=== PATIENT | male | born 1940 | race Caucasian/White ===

== ENCOUNTER 2017-12-27 01:37 | Inpatient (IN) | payer MEDICARE ==
[~2017-12-27] VITALS: Ht 182.9 cm; Wt 85.3 kg
[2017-12-27] MEDS ORDERED: ZOLP6.252 PO (02:25)
[2017-12-27] MEDS ORDERED: ALPR0.255 PO (02:25)
[2017-12-27] MEDS ORDERED: ATEN25TA PO (02:26)
[2017-12-27] MEDS ORDERED: MAG HYDROX/AL HYDROX/SIMETH 30 ML LIQUID UDC PO PRN (02:45)
[2017-12-27] MEDS ORDERED: MAGNESIUM HYDROXIDE 30 ML LIQUID UDC PO PRN (02:45)
--- NOTE | 2017-12-27 03:00 | NUR ---
AT APPROX 0130, ADMITTED 77 YEAR OLD MALE FROM [facility] VIA AMBULANCE TO [facility]HU ON A 5150FOR DTS.PER HOLD, PATIENT OD ON 4 PILLS ON AMBIEN 6.2MG AND 12 PILLS OF XANAX 0.25MG. AT TIME OF ADMISSION, PATIENT WAS NOTED A/O 3. HE STATED THAT HE IS UNABLE TO WALK. UPON INTERVIEW, HE STATED, HE STATED AMADA HE FELL AT HOME FEW DAYS AGO AND SINCE THEN HE HAS BEEN HAVING SOME DIFFICULTY WALKING. PATIENT THEN D/T THE PAIN AND THINKING THAT HE IS A BURDEN TO HER SISTER, HE ATTEMPTED TO KILL HIMSELF BY OD ON HIS PILLS. ACCORDING TO HIS HOLD, HIS NEIGHBOR WHEN TO CHECK ON HIM YESTERDAY AND FOUND HIM SLEEPING AND HE CALLED 911. PATIENT WAS TAKEN TO [facility] WHERE HE WAS PUT ON HOLD FOR DTS AND WAS MEDICALLY CLEARED FOR ADMISSION TO MHU IN [facility]. UPON ASSESSMENT, REDNESS NOTED ON BUTTOCKS, AND A RED SPOT NOTED IN HIS RIGHT HIP LATERAL ASPECT. UPON INTERVIEW PATIENT CONTINUE HAVING SI. HE STATED, "I DON'T WANT TO LIVE ANYMORE, I AM SORRY I WAS NOT ABLE TO THEN". PATIENT WAS REASSURED AND REDIRECTED AND WAS ABLE TO CFS AT THIS TIME. PATIENT C/O UNABLE TO URINATE, A BLADDER SCANNER WAS DONE WITH 875 URINE RETENTION IN HIS BLADDER. JACQUE PETIT WAS CALLED AT 0220 AND AGAIN AT 0236. HE CALLED BACK AT APPROX 0250 WITH A NEW ORDER TO DO IN-AND-OUT XIE CATH ONE TIME. ORDER NOTED A CARRIED OUT. PATIENT IS UNDER THE CARE OF DR SUGGS. WILL CONTINUE TO MONITOR.
--- NOTE | 2017-12-27 03:30 | NUR ---
PATIENT NOTED CALM, COOPERATIVE AND IN NO ACUTE DISTRESS. 1100CC OF URINE OUT WAS NOTED. PATIENT C/O MODERATE PAIN IN HIS RIGHT HIP UPON CHANGING POSITIONS. HE STATED THAT HE IS HAVING PAIN IN HIS RIGHT HIP SINCE HE FELL FEW DAYS AGO. DR Mariela CARR WAS NOTIFY AND NEW ORDER OBTAINED FOR X RAY RIGHT HIP. AWAITING FOR X RAY TO BE TAKEN. WILL CONTINUE TO MONITOR.
--- NOTE | 2017-12-27 05:00 | NUR ---
X RAY OF RIGHT HIP WAS TAKEN. PATIENT NOTED CALM, COOPERATIVE, IN NO DISTRESS. WILL CONTINUE TO MONITOR.
[2017-12-27 05:28] VITALS: BP 138/76
--- NOTE | 2017-12-27 06:09 | NUR ---
AWAITING FOR RESULTS OF RIGHT HIP X RAY. PATIENT SLEEPING COMFORTABLE IN HIS BED. WILL CONTINUE TO MONITOR.
--- NOTE | 2017-12-27 06:27 | NUR ---
PATIENT NOTED SLEEPING COMFORTABLE IN HIS ROOM IN BE. 1300CC IS NOW NOTED IN HIS XIE CATH WITH MILD HEMATURIA VISIBLE. DR. CARR WAS NOTIFY AND NEW ORDER GIVEN TO LEAVE THE XIE CATH IN PLACE AND SEND UA FOR C/S AND URINALYSIS. ORDER NOTED AND CARRIED OUT. WILL CONTINUE TO MONITOR. Addendum: 12/27/17 at 0635 by FARRAH KITCHEN RN PER DR. CARR, NEW ORDER TO DO A BLADDER FLUSH LATER ON THIS MORNING. WILL ENDORSE TO INCOMING SHIFT.
--- NOTE | 2017-12-27 06:53 | NUR ---
SISTER DONALD DUNNE WAS NOTIFY OF PAT[facility] AD[facility] AT PHONE #[phone].
--- NOTE | 2017-12-27 07:30 | NUR ---
XIE CATH WAS EMPTIED WITH APPROX 1100CC OF URINE OUTPUT. PATIENT RESTING COMFORTABLE IN HIS ROOM IN BED. SITTER AT BED SIDE. NO C/O PAIN AT THIS TIME. WILL CONTINUE TO MONITOR.
[2017-12-27 07:44] LABS: *BILIRUBIN,URIN NEGATIVE (NEGATIVE); *BLOOD, URINE 3+ (NEGATIVE); *CLARITY,URINE HAZY (CLEAR); *COLOR,URINE YELLOW (YELLOW); *KETONES,URINE NEGATIVE (NEGATIVE); *PROTEIN,URINE NEGATIVE (NEGATIVE); *UROBILINOGEN,URINE 0.2 E.U./dl (NORMAL); LEUKOCYTE ESTERASE ,URINE NEGATIVE (NEGATIVE); NITRITE, URINE NEGATIVE (NEGATIVE); PH,URINE 5.5 (5.0-8.0); UGLUCOSE NEGATIVE (NEGATIVE)
[2017-12-27 07:56] LABS: BACTERIA,URINE NONE SEEN /HPF (NONE SEEN); RBC,URINE 80-100 /HPF (0-3); SQUAMOUS EPITHELIAL CELL,UR FEW /HPF (NONE SEEN); WBC,URINE 0-3 /HPF (0-3)
[2017-12-27 08:00] VITALS: BP 140/64
[2017-12-27] MEDS: ATENOLOL 25 MG TABLET PO SCH (08:52)
[2017-12-27] MEDS: Z GUARD REMEDY PASTE 57 GM TUBE TOP SCH ×2 (08:52→20:25)
--- NOTE | 2017-12-27 12:00 | NUR ---
Gps/Testing Machine Operator- Coffey catheter remains secured to his left thigh, urine draining dark tea colored urine, adequate fluid intake , no clots noted at this time. Continue to monitor output
--- NOTE | 2017-12-27 12:44 | NUR ---
Firearms Report: Clerk Specialist completed and submitted [employer]arms Report on 12/27/17 for 5150 DTS certification.
[2017-12-27] MEDS: ESCITALOPRAM OXALATE 10 MG TABLET PO SCH (13:18)
--- NOTE | 2017-12-27 14:27 | NUR ---
Gps/Electrical Plumbing Supervisor- Saline lock to left forearm , insyte # 22 inserted ,tolerated well , Patient was well informed. for NS IV bolus 1 liter as per Shlomo Bah NP.Patient was well informed.
[2017-12-27] MEDS ORDERED: IV NS 1000 ML 1,000 ML IV ONE (14:30)
[2017-12-27 16:24] VITALS: BP 112/53
--- NOTE | 2017-12-27 16:29 | NUR ---
Initial Discharge Instructions: Patient currently resides at home alone [[address] [place] [address]; [phone]]. Per pt he would like to return there upon discharge. Patient reports he would be interested in Home Health when he is discharged as well. MARKEL will speak with pt's sister, Carole ([phone]) to gather further information. MARKEL will continue to collaborate with pt, family, and MD regarding most appropriate discharge plans for this patient. MARKEL will form a safe and proper discharge plan.
--- NOTE | 2017-12-27 18:00 | NUR ---
Gps/Massotherapist- Remains with IVF of NS at 100 ml/hr , infusing well to his left forearm, via IV pump, no redness noted to the site .
--- NOTE | 2017-12-27 19:45 | NUR ---
RECEIVED PATIENT IN HIS ROOM. HE IS NOTED ASLEEP BUT EASILY AROUSABLE. HE IS A/O X 3. HE CONTINUE ON 1:1 SUPERVISION FOR SI. CONTINUE ON IV FLUIDS NS 100ML/HOUR. HE ALSO CONTINUE WITH A XIE CATH, D/T URINARY RETENTION; TOLERATING WELL. PT. DENIES PAIN OR DISCOMFORT AT THIS TIME. V/S STABLE. HE IS NOTED WITH SAD FACIAL EXPRESSION, LOW MOOD, BLUNTED AFFECT, REMAINS IN HIS ROOM MOST OF THE TIME. HE IS ABLE TO CFS. HE IS COMPLIANT WITH MEDICATION REGIMENT AT THIS TIME. WILL CONTINUE TO MONITOR CLOSELY.
[2017-12-27] MEDS: TAMSULOSIN HCL 0.4 MG CAP.SR.24H PO SCH (20:25)
[2017-12-27 20:33] VITALS: BP 132/60
[2017-12-27] MEDS: ZOLPIDEM 5 MG TABLET PO PRN (22:38)
[2017-12-28] MEDS: ACETAMINOPHEN 325 MG TABLET PO PRN (00:51)
--- NOTE | 2017-12-28 01:00 | NUR ---
PATIENT C/O GENERALIZED MILD TO MODERATE PAIN. TYLENOL 650 MG PO PRN WAS GIVEN. WILL CONTINUE TO MONITOR.
[2017-12-28 07:30] VITALS: BP 133/63
[2017-12-28 08:16] LABS: CARBON DIOXIDE 24 mmol/L (21-32); CHLORIDE 109 mmol/L (98-107); CREATININE 1.5 mg/dL (0.6-1.3); GLUCOSE 96 mg/dL (74-106); POTASSIUM 3.9 mmol/L (3.5-5.1); UREA NITROGEN, BLOOD 23 mg/dL (7-18)
[2017-12-28] MEDS: ATENOLOL 25 MG TABLET PO SCH (08:34)
[2017-12-28] MEDS: ESCITALOPRAM OXALATE 10 MG TABLET PO SCH (08:34)
[2017-12-28] MEDS: Z GUARD REMEDY PASTE 57 GM TUBE TOP SCH ×2 (08:34→21:03)
[2017-12-28] MEDS: LORAZEPAM 0.5 MG TABLET PO PRN (12:27)
--- NOTE | 2017-12-28 12:30 | NUR ---
Gps/Flight Test Shop Mechanic- Verbalized feelings of being anxious, and afraid, when asked why he is afraid , claimed" my sister is coming to see me this afternoon, i always have that feelings when i am worried and scared, my legs and back does not work, gets weak".Reassured, claimed he also have difficulty eating when he gets anxious .Verbalized wanting to kill himself when he gets this way, encouraged to continue to verbalized feelings ,monitored closely for safety.Sitter well informed.
[2017-12-28 15:16] VITALS: BP 132/60
[2017-12-28] MEDS: TAMSULOSIN HCL 0.4 MG CAP.SR.24H PO SCH (21:02)
[2017-12-28 21:24] VITALS: BP 127/63
[2017-12-28] MEDS: ZOLPIDEM 5 MG TABLET PO PRN (23:41)
[2017-12-29] MEDS: ACETAMINOPHEN 325 MG TABLET PO PRN (06:09)
--- NOTE | 2017-12-29 06:56 | NUR ---
PATIENT SLEPT FOR MOST PART OF THE NIGHT, CONT 1;1 SITTER FOR SAFETY, GIVEN TYLENOL 650MG PO FOR COMPLAIN OF BACK PAIN AND R HIP PAIN, XIE CATH PATENT DRAINING WITH TEA TO YELLOW COLOR URINE IN MODERATE AMOUNT. KEPT CLEAN AND DRY. CONT TO MONITOR.
[2017-12-29 07:30] VITALS: BP 109/68
[2017-12-29] MEDS: ESCITALOPRAM OXALATE 10 MG TABLET PO SCH (08:27)
[2017-12-29] MEDS: ATENOLOL 25 MG TABLET PO SCH (08:28)
[2017-12-29] MEDS: Z GUARD REMEDY PASTE 57 GM TUBE TOP SCH ×2 (08:29→20:50)
--- NOTE | 2017-12-29 12:49 | NUR ---
Gps/Detacker- Dr Woo was in to see patient ,orders received, urine specimen obtained sent to lab.Patient eating lunch in the dinning room .Remains with sitter for safety.
[2017-12-29 12:54] LABS: *BILIRUBIN,URIN NEGATIVE (NEGATIVE); *BLOOD, URINE 3+ (NEGATIVE); *CLARITY,URINE CLEAR (CLEAR); *COLOR,URINE YELLOW (YELLOW); *KETONES,URINE NEGATIVE (NEGATIVE); *PROTEIN,URINE 1+ (NEGATIVE); *UROBILINOGEN,URINE 0.2 E.U./dl (NORMAL); LEUKOCYTE ESTERASE ,URINE TRACE (NEGATIVE); NITRITE, URINE NEGATIVE (NEGATIVE); PH,URINE 5.5 (5.0-8.0); UGLUCOSE NEGATIVE (NEGATIVE)
[2017-12-29 13:00] LABS: *CREATININE,URINE 74.1 mg/dL (30-125)
[2017-12-29 13:08] LABS: BACTERIA,URINE FEW /HPF (NONE SEEN); SQUAMOUS EPITHELIAL CELL,UR MODERATE /HPF (NONE SEEN)
[2017-12-29 15:45] VITALS: BP 110/69
--- NOTE | 2017-12-29 18:00 | NUR ---
Gps/Operations Intelligence- Patient's family in to visit him this pm.
[2017-12-29] MEDS: TAMSULOSIN HCL 0.4 MG CAP.SR.24H PO SCH (20:50)
[2017-12-29 21:51] VITALS: BP 130/65
[2017-12-29] MEDS: ZOLPIDEM 5 MG TABLET PO PRN (22:04)
[2017-12-30] MEDS: LORAZEPAM 0.5 MG TABLET PO PRN (00:28)
[2017-12-30 06:57] LABS: BASOPHILS % (AUTO) 0.4 % (0.0-2.0); EOSINOPHILS # (AUTO) 0.2 K/uL (0.0-0.7); EOSINOPHILS % (AUTO) 3.4 % (0.0-7.0); HEMOGLOBIN 13.4 g/dL (12.5-16.3); LYMPHOCYTES % (AUTO) 16.1 % (20.5-51.5); MEAN CORPUSCULAR HEMOGLOBIN 32.1 uug (23.8-33.4); MEAN CORPUSCULAR HGB CONC 34 g/dL (32.5-36.3); MEAN CORPUSCULAR VOLUME 93.5 fL (73.0-96.2); MONOCYTES # (AUTO) 0.7 K/uL (2.0-10.0); MONOCYTES % (AUTO) 10.7 % (0.0-11.0); NEUTROPHILS # (AUTO) 4.5 K/uL (1.8-8.9); NEUTROPHILS % (AUTO) 69.4 % (38.5-71.5); PLATELET COUNT (AUTO) 233 K/uL (152-348); RED BLOOD CELL COUNT(AUTO) 4.17 MIL/uL (4.06-5.63); WHITE BLOOD COUNT (AUTO) 6.5 K/uL (3.6-10.2)
[2017-12-30 07:30] VITALS: BP 145/50
[2017-12-30] MEDS: ESCITALOPRAM OXALATE 10 MG TABLET PO SCH (08:31)
[2017-12-30] MEDS: ATENOLOL 25 MG TABLET PO SCH (08:31)
[2017-12-30] MEDS: Z GUARD REMEDY PASTE 57 GM TUBE TOP SCH ×2 (09:02→20:44)
[2017-12-30 10:07] LABS: ALANINE AMINOTRANSFERASE 32 U/L (16-63); ALKALINE PHOSPHATASE 61 U/L (50-136); ASPARTATE AMINOTRANSFERASE 31 U/L (15-37); BILIRUBIN,TOTAL 0.7 mg/dL (0.2-1.0); CARBON DIOXIDE 22 mmol/L (21-32); CHLORIDE 104 mmol/L (98-107); CREATINE KINASE, TOTAL 327 U/L (39-308); CREATININE 1.4 mg/dL (0.6-1.3); GLUCOSE 94 mg/dL (74-106); MAGNESIUM 1.9 mg/dL (1.8-2.4); PHOSPHOROUS 3.7 mg/dL (2.5-4.9); POTASSIUM 4.2 mmol/L (3.5-5.1); TOTAL PROTEIN, SERUM 6.8 g/dL (6.4-8.2); UREA NITROGEN, BLOOD 25 mg/dL (7-18)
[2017-12-30 15:32] VITALS: BP 118/67
[2017-12-30 20:00] VITALS: BP 137/64
[2017-12-30] MEDS: TAMSULOSIN HCL 0.4 MG CAP.SR.24H PO SCH (20:44)
[2017-12-30] MEDS: ZOLPIDEM 5 MG TABLET PO PRN (20:44)
[2017-12-31] MEDS: ACETAMINOPHEN 325 MG TABLET PO PRN (00:55)
[2017-12-31] MEDS: LORAZEPAM 0.5 MG TABLET PO PRN (00:55)
[2017-12-31] MEDS: ESCITALOPRAM OXALATE 10 MG TABLET PO SCH (08:05)
[2017-12-31] MEDS: Z GUARD REMEDY PASTE 57 GM TUBE TOP SCH ×2 (08:06→21:25)
[2017-12-31] MEDS: ATENOLOL 25 MG TABLET PO SCH (08:06)
[2017-12-31 08:30] VITALS: BP 127/52
[2017-12-31 08:47] LABS: A/G RATIO 1.1 (0.7-1.7); ALBUMIN 3.2 g/dL (2.9-4.4); ALPHA-1-GLOBULIN 0.3 g/dL (0.0-0.4); ALPHA-2-GLOBULIN 0.8 g/dL (0.4-1.0); M-SPIKE Not Observed g/dL (Not Observed)
[2017-12-31 15:16] VITALS: BP 126/72
[2017-12-31 19:30] VITALS: BP 133/70
--- NOTE | 2017-12-31 20:00 | NUR ---
RECEIVED PATIENT IN HIS ROOM. HE IS NOTED AWAKE. HE IS A/O X 3. HE CONTINUE ON 1:1 SUPERVISION FOR SI AND HIGH FALL RISK. PT CONTINUE ON A XIE CATH D/T URINARY RETENTION; URINE COLOR NOTED YELLOW AND CLEAR. DENIES PAIN OR DISCOMFORT AT THIS TIME. V/S STABLE. HE IS NOTED LESS DEPRESSED, HE IS ABLE TO VERBALIZED FEELINGS. HE DENIES SI OR ANY THOUGHT TO HARM SELF, REMAINS COMPLIANT WITH MEDICATION REGIMENT, DIET AND PLAN OF CARE. HE IS ABLE TO CFS. SAFETY EMPHASIS. WILL CONTINUE TO MONITOR CLOSELY.
[2017-12-31] MEDS: TAMSULOSIN HCL 0.4 MG CAP.SR.24H PO SCH (20:44)
[2018-01-01] MEDS: ACETAMINOPHEN 325 MG TABLET PO PRN ×2 (06:50→20:57)
--- NOTE | 2018-01-01 06:53 | NUR ---
PATIENT SLEPT FOR APPROX 4.45HRS THROUGH THE NIGHT. URINE OUTPUT VIA F/C DURING THE SHIFT WAS 1400CC. PATIENT C/O MILD BACK PAIN. TYLENOL 650MG PO PRN WAS GIVEN FOR PAIN. WILL CONTINUE TO MONITOR,
[2018-01-01 07:30] VITALS: BP 132/65
[2018-01-01] MEDS ORDERED: QUETIAPINE FUMARATE 25 MG TABLET PO SCH (09:25)
[2018-01-01] MEDS: ESCITALOPRAM OXALATE 10 MG TABLET PO SCH (09:36)
[2018-01-01] MEDS: ATENOLOL 25 MG TABLET PO SCH (09:37)
[2018-01-01] MEDS: Z GUARD REMEDY PASTE 57 GM TUBE TOP SCH ×2 (09:37→21:01)
[2018-01-01] MEDS: QUETIAPINE FUMARATE 25 MG TABLET PO SCH (16:56)
--- NOTE | 2018-01-01 19:50 | NUR ---
RECEIVED PATIENT IN HIS ROOM. HE IS NOTED AWAKE. HE IS A/O X 3. HE IS NO LONGER ON 1:1 SUPERVISION. PT CONTINUE WITH A XIE CATH D/T URINARY RETENTION; URINE COLOR NOTED YELLOW AND CLEAR. V/S STABLE. HE IS NOTED LESS DEPRESSED, HE IS ABLE TO VERBALIZED FEELINGS. FAIR INSIGHT AND JUDGMENT NOTED. HE DENIES SI OR ANY THOUGHT TO HARM SELF, REMAINS COMPLIANT WITH MEDICATION REGIMENT, DIET AND PLAN OF CARE. HE IS ABLE TO CFS. SAFETY EMPHASIS. WILL CONTINUE TO MONITOR CLOSELY.
[2018-01-01 20:13] VITALS: BP 123/73
[2018-01-01] MEDS: TAMSULOSIN HCL 0.4 MG CAP.SR.24H PO SCH (20:58)
--- NOTE | 2018-01-01 21:00 | NUR ---
PATIENT C/O MILD LOWER BACK PAIN 4/10 IN THE INTENSITY SCALE. TYLENOL 650MG PO PRN WAS GIVEN FOR PAIN. WILL CONTINUE TO MONITOR.
--- NOTE | 2018-01-02 06:51 | NUR ---
URINE OUTPUT THROUGHOUT THE SHIFT VIA F/C WAS 550CC. PATIENT SLEPT FOR APPROX 8.30 HRS THROUGH THE NIGHT.
[2018-01-02 07:30] VITALS: BP 116/63
[2018-01-02] MEDS: ESCITALOPRAM OXALATE 10 MG TABLET PO SCH (08:40)
[2018-01-02] MEDS: QUETIAPINE FUMARATE 25 MG TABLET PO SCH ×2 (08:41→17:08)
[2018-01-02] MEDS: ATENOLOL 25 MG TABLET PO SCH (08:41)
[2018-01-02] MEDS: Z GUARD REMEDY PASTE 57 GM TUBE TOP SCH ×2 (08:41→20:22)
--- NOTE | 2018-01-02 15:36 | NUR ---
SS Discharge Planning Note: SW met with patient at bedside to discuss discharge planning. Provided education about SNF placement, and patient reported that he would like a entry level account representative from SNF to speak with him. Krista from [facility] [[address] [place] [address]; [phone]] met with patient at bedside to discuss SNF placement. Patient agreeable to try SNF placement when ready for discharge. Dr. Aliyah jaramillo.
[2018-01-02 16:45] VITALS: BP 134/65
--- NOTE | 2018-01-02 16:45 | NUR ---
Gps/Medical Transcription Editor- Present candelaria catheter was dc'd as ordered ,w/o any difficulty tolerated well,patient was well informed, bladder training in progress, urinal placed w/ in his reach, adequate fluid intake.Continue to assess bladder for any signs of distension.
[2018-01-02 20:00] VITALS: BP 126/66
[2018-01-02] MEDS: TAMSULOSIN HCL 0.4 MG CAP.SR.24H PO SCH (20:20)
[2018-01-02] MEDS: LORAZEPAM 0.5 MG TABLET PO PRN (20:20)
[2018-01-03] MEDS: ZOLPIDEM 5 MG TABLET PO PRN (02:35)
[2018-01-03 07:21] LABS: BASOPHILS % (AUTO) 0.7 % (0.0-2.0); EOSINOPHILS # (AUTO) 0.2 K/uL (0.0-0.7); EOSINOPHILS % (AUTO) 2.7 % (0.0-7.0); HEMATOCRIT 41.4 % (36.7-47.1); HEMOGLOBIN 14.5 g/dL (12.5-16.3); LYMPHOCYTES # (AUTO) 1.2 K/uL (20.0-40.0); LYMPHOCYTES % (AUTO) 18.9 % (20.5-51.5); MEAN CORPUSCULAR HEMOGLOBIN 32.5 uug (23.8-33.4); MEAN CORPUSCULAR HGB CONC 35 g/dL (32.5-36.3); MONOCYTES # (AUTO) 0.8 K/uL (2.0-10.0); MONOCYTES % (AUTO) 13.3 % (0.0-11.0); NEUTROPHILS # (AUTO) 4.1 K/uL (1.8-8.9); NEUTROPHILS % (AUTO) 64.4 % (38.5-71.5); PLATELET COUNT (AUTO) 275 K/uL (152-348); RED BLOOD CELL COUNT(AUTO) 4.45 MIL/uL (4.06-5.63); WHITE BLOOD COUNT (AUTO) 6.3 K/uL (3.6-10.2)
[2018-01-03 07:30] VITALS: BP 112/95
[2018-01-03 07:43] LABS: ALANINE AMINOTRANSFERASE 38 U/L (16-63); ALKALINE PHOSPHATASE 77 U/L (50-136); ASPARTATE AMINOTRANSFERASE 28 U/L (15-37); BILIRUBIN,TOTAL 0.6 mg/dL (0.2-1.0); CARBON DIOXIDE 27 mmol/L (21-32); CHLORIDE 108 mmol/L (98-107); CREATININE 1.6 mg/dL (0.6-1.3); GLUCOSE 95 mg/dL (74-106); MAGNESIUM 2.2 mg/dL (1.8-2.4); PHOSPHOROUS 3.6 mg/dL (2.5-4.9); POTASSIUM 4.4 mmol/L (3.5-5.1); TOTAL PROTEIN, SERUM 7.4 g/dL (6.4-8.2); UREA NITROGEN, BLOOD 28 mg/dL (7-18)
[2018-01-03] MEDS: ESCITALOPRAM OXALATE 10 MG TABLET PO SCH (08:42)
[2018-01-03] MEDS: QUETIAPINE FUMARATE 25 MG TABLET PO SCH ×2 (08:42→18:11)
[2018-01-03] MEDS: ATENOLOL 25 MG TABLET PO SCH (08:42)
[2018-01-03] MEDS: Z GUARD REMEDY PASTE 57 GM TUBE TOP SCH ×2 (08:43→20:22)
--- NOTE | 2018-01-03 15:07 | NUR ---
SATURDAY DISCHARGE NOTE: Patient will be discharged to [facility] [[address] [place] [address]; [phone]] via ambulance. Please arrange an ambulance for this patient before noon. Spoke with Deuce at the facility who states they are ready to accept the patient on 01/04/18. Patient is aware and agreeable with discharge plans. Spoke with patients sister, Symone ([phone]) who is also aware and agreeable with discharge plans. Patient will follow-up at the facility with Dr. Briones (Station Attendant) and Dr. Ly (Psychiatrist). Patient was given outpatient mental health resources to [facility] , [facility] , and the National Suicide Prevention Lifeline .
[2018-01-03 15:25] VITALS: BP 119/77
[2018-01-03 20:00] VITALS: BP 130/77
[2018-01-03] MEDS: TAMSULOSIN HCL 0.4 MG CAP.SR.24H PO SCH (20:22)
--- NOTE | 2018-01-04 06:03 | NUR ---
GPS: REMAIN CALM AND COOPERATIVE. F/C OUT PUT 950 CC. SLEPT 8:30 HRS THROUGH THE NIGHT. NO BEHAVIOR PROBLEM NOTED. CONTINUE PLAN OF CARE.
[2018-01-04 07:30] VITALS: BP 133/69
[2018-01-04 08:29] VITALS: BP 128/78
[2018-01-04] MEDS: ATENOLOL 25 MG TABLET PO SCH (08:29)
[2018-01-04] MEDS: ESCITALOPRAM OXALATE 10 MG TABLET PO SCH (08:29)
[2018-01-04] MEDS: QUETIAPINE FUMARATE 25 MG TABLET PO SCH (08:29)
[2018-01-04] MEDS: Z GUARD REMEDY PASTE 57 GM TUBE TOP SCH (08:48)
--- NOTE | 2018-01-04 12:09 | NUR ---
DISCHARGE NOTE: Pt WAS DISCHARGED FROM MHU TODAY @ 1135, PICKED UP BY AMBULANCE. [facility] REPORT WAS GIVEN THROUGH PHONE TO MARIBEL, NURSING MANAGER TRUCK, ALL PERTINENT INFORMATION GIVEN. REPORT GIVEN TO EMT STAFF UPON DISCHARGE, ALL FORMS, INSTRUCTIONS, MEDICATION LIST, AND PERTINENT INFORMATION WERE PRINTED AND SENT TO FACILITY WITH Pt. VITAL SIGNS WERE STABLE UPON DISCHARGE, XIE CATHETER SENT WITH Pt PER MD ORDER. DR. IQBAL AND DR. SUGGS BOTH AWARE OF DISCHARGE AND WILL FOLLOW-UP WITH Pt CARE AT THE FACILITY.
== END 2018-01-04 12:16 | DRG 885 ==
LOC: GPS 01:37
PROVIDERS: ADMIT Psychiatry & Neurology Psychiatry; ATTEND Nurse Practitioner Acute Care
DX: F33.3 Major depressive disorder, recurrent, severe with psychotic symptoms (principal); N17.9 Acute kidney failure, unspecified; T42.4X2D Poisoning by benzodiazepines, intentional self-harm, subsequent encounter; T42.6X2D Poisoning by other antiepileptic and sedative-hypnotic drugs, intentional self-harm, subsequent encounter; T39.312D Poisoning by propionic acid derivatives, intentional self-harm, subsequent encounter; G89.29 Other chronic pain; R26.89 Other abnormalities of gait and mobility; N28.1 Cyst of kidney, acquired; E78.5 Hyperlipidemia, unspecified; M25.551 Pain in right hip; E88.09 Other disorders of plasma-protein metabolism, not elsewhere classified; M79.605 Pain in left leg; M79.604 Pain in right leg; M51.37 Other intervertebral disc degeneration, lumbosacral region; M25.78 Osteophyte, vertebrae; R33.9 Retention of urine, unspecified; R97.20 Elevated prostate specific antigen [PSA]; Z79.899 Other long term (current) drug therapy; I10 Essential (primary) hypertension
CPT/HCPCS: 36415; 72100; 72170; 73502; 76770; 83735; 83970; 84100; 84153; 84155; 84156; 84165; 84300; 85025; 87086; 93005; 97116; 97530; A4217; C1758; J7030

== ENCOUNTER 2022-04-25 11:59 | Emergency (ER) | payer MEDICARE, BC ==
[~2022-04-25] VITALS: Ht 182.9 cm; Wt 95.3 kg
[~2022-04-25 11:59] MED LIST: ATEN25TA PO
--- NOTE | 2022-04-25 12:22 | NUR ---
PATIENT IS AWAKE AND ALERT WITH NO COMPLAINTS.
[2022-04-25] MEDS ORDERED: LIPITOR (12:26)
[2022-04-25] MEDS ORDERED: PEPCID (12:26)
[2022-04-25] MEDS ORDERED: DESYREL (12:26)
[2022-04-25] MEDS ORDERED: TAMSULOSIN (12:26)
[2022-04-25] MEDS ORDERED: QUET25TA3 (12:26)
[2022-04-25 12:39] LABS: HEMATOCRIT 35.9 % (36.7-47.1); MEAN CORPUSCULAR HEMOGLOBIN 31.6 uug (23.8-33.4); MEAN CORPUSCULAR VOLUME 92.4 fL (73.0-96.2); PLATELET COUNT (AUTO) 223 K/uL (152-348)
[2022-04-25 12:51] LABS: MAGNESIUM 1.9 mg/dL (1.8-2.4); PHOSPHOROUS 3.4 mg/dL (2.5-4.9)
[2022-04-25 12:53] LABS: ALANINE AMINOTRANSFERASE 22 U/L (16-63); ALKALINE PHOSPHATASE 101 U/L (50-136); ASPARTATE AMINOTRANSFERASE 15 U/L (15-37); BILIRUBIN,DIRECT 0.2 mg/dL (0.0-0.2); BILIRUBIN,TOTAL 0.6 mg/dL (0.2-1.0); CARBON DIOXIDE 21 mmol/L (21-32); CHLORIDE 108 mmol/L (98-107); CREATININE 2.1 mg/dL (0.6-1.3); GLUCOSE 121 mg/dL (74-106); POTASSIUM 4.1 mmol/L (3.5-5.1); TOTAL PROTEIN, SERUM 7.3 g/dL (6.4-8.2); UREA NITROGEN, BLOOD 33 mg/dL (7-18)
[2022-04-25 14:44] LABS: *BILIRUBIN,URIN NEGATIVE (NEGATIVE); *COLOR,URINE YELLOW (YELLOW); *KETONES,URINE TRACE (NEGATIVE); LEUKOCYTE ESTERASE ,URINE 3+ (NEGATIVE); NITRITE, URINE NEGATIVE (NEGATIVE); PH,URINE 5.5 (5.0-8.0); UGLUCOSE NEGATIVE (NEGATIVE)
[2022-04-25] MEDS ORDERED: HYDR10TA37 PO (15:28)
[2022-04-25] MEDS ORDERED: TRIA15CR2 TP (15:28)
[2022-04-25] MEDS ORDERED: ONDA4TAB5 PO (15:28)
[2022-04-25 15:36] LABS: *BLOOD, URINE TRACE (NEGATIVE); *CLARITY,URINE CLOUDY (CLEAR)
[2022-04-25 15:37] LABS: WBC,URINE TNTC /HPF (0-3)
[2022-04-25 15:38] LABS: BACTERIA,URINE MANY /HPF (NONE SEEN); SQUAMOUS EPITHELIAL CELL,UR NONE SEEN /HPF (NONE SEEN)
[2022-04-25] MEDS ORDERED: CEFTRIAXONE 1 G in IV DEXTROSE 5% 50 ML IV ONE (15:45)
[2022-04-25] MEDS ORDERED: CEFTRIAXONE /D5W 50ML IVPB **ER PYXIS IV ONE (15:46)
[2022-04-25] MEDS ORDERED: CEFP200T14 PO (15:58)
--- NOTE | 2022-04-25 16:24 | NUR ---
PATIENT IS SITTING UP EATING SNACKS AND DRINKING WATER WITH NO COMPLAINTS. STATES HE UNDERSTNADS HE NEEDS TO F/U WITH HIS DOCTOR. KIMBERLIOLIVIA WASHINGTON SPOKE TO ER MD. SON PRABHA IS TO COME AND TAKE HIM HOME SOON
--- NOTE | 2022-04-25 17:44 | NUR ---
PATIENT'S SON PRABHA HERE TO TAKE PATIENT HOME. DC, RX AND FOLLOW UP INSRTUCTIONS GIVEN AND EXPLAINED TO PATIENT AND PRABHA WHO STATES HE UNDERSTANDS ALL INSTRUCTIONS
[2022-04-25 17:45] VITALS: BP 124/72
== END 2022-04-25 17:46 | disposition home or self-care (01) ==
LOC: ER 11:59
DX: N39.0 Urinary tract infection, site not specified (principal); I12.9 Hypertensive chronic kidney disease with stage 1 through stage 4 chronic kidney disease, or unspecified chronic kidney disease; N18.9 Chronic kidney disease, unspecified; N40.0 Benign prostatic hyperplasia without lower urinary tract symptoms; G89.29 Other chronic pain; E78.5 Hyperlipidemia, unspecified; G62.9 Polyneuropathy, unspecified
CPT/HCPCS: 80076; 80048; 81001; 83735; 84100; 85025; 36415; 71045; 99284; 96365; 96366; J0696; A4663